=== PATIENT | female | born 1985 | race Caucasian/White ===

== ENCOUNTER → 2021-08-03 09:56 | Outpatient (BNVA) | payer BC, SELFPAY | PROVIDERS: PCP Pediatrics; Visit Provider Psychiatry & Neurology Neurology | DX: G43.709 Chronic migraine without aura, not intractable, without status migrainosus (principal) | CPT/HCPCS: 64615; J0585 ==

== ENCOUNTER → 2021-11-07 09:52 | Outpatient (BNVA) | payer BC, SELFPAY | PROVIDERS: PCP Pediatrics; Visit Provider Psychiatry & Neurology Neurology | DX: G43.709 Chronic migraine without aura, not intractable, without status migrainosus (principal) | CPT/HCPCS: 64615; J0585 ==

== ENCOUNTER → 2022-02-08 09:50 | Outpatient (BNVA) | payer BC, SELFPAY | PROVIDERS: PCP Pediatrics; Visit Provider Psychiatry & Neurology Neurology | DX: G43.709 Chronic migraine without aura, not intractable, without status migrainosus (principal); G43.119 Migraine with aura, intractable, without status migrainosus; R42 Dizziness and giddiness | CPT/HCPCS: 64615; J0585 ==

== ENCOUNTER → 2022-05-15 11:02 | Outpatient (BNVA) | payer BC, SELFPAY | PROVIDERS: PCP Pediatrics; Visit Provider Psychiatry & Neurology Neurology | DX: G43.119 Migraine with aura, intractable, without status migrainosus (principal); G43.709 Chronic migraine without aura, not intractable, without status migrainosus | CPT/HCPCS: 64615; J0585 ==

== ENCOUNTER → 2022-08-21 10:50 | Outpatient (BNVA) | payer BC, SELFPAY | PROVIDERS: PCP Pediatrics; Visit Provider Psychiatry & Neurology Neurology | DX: G43.709 Chronic migraine without aura, not intractable, without status migrainosus (principal) | CPT/HCPCS: 64615; J0585 ==

== ENCOUNTER → 2022-11-25 13:49 | Outpatient (BNVA) | payer BC, SELFPAY | PROVIDERS: PCP Pediatrics; Visit Provider Psychiatry & Neurology Neurology | DX: G43.709 Chronic migraine without aura, not intractable, without status migrainosus (principal) | CPT/HCPCS: 64615; J0585 ==

== ENCOUNTER 2023-03-12 07:30 | Outpatient (AMB) | payer BC, SELFPAY ==
[2023-03-12 07:35] VITALS: BP 112/84; PULSE 65
--- NOTE | 2023-03-12 07:35 | A.OFFVIS_ITS ---
Intake Vital Signs 03/12/23 07:35 Height 5 ft 5 in BP 112/84 Blood Pressure Location Rt brachial Position Sitting Pulse 65 Pulse Source Pulse Oximeter Intake Visit Reasons: 3 mo Botox (pt Owned)-lvm Intake Note: Patient presents for 3 month botox. Patient states no issues or concerns. Allergies No Known Allergies Allergy (Verified 03/12/23 07:37) Medication List - Last Reconciled 03/12/23 by Gabriela Hillman MD adalimumab (Humira Pen) mg subcut albuterol sulfate 90 mcg/actuation inhalation budesonide 180 mcg/actuation (Pulmicort Flexhaler) 2 inhalations inhalation BID clobetasol 0.05% grams topical DIRECTED cyclobenzaprine 5 mg PO BEDTIME levothyroxine (Synthroid) 50 mcg PO DAILY onabotulinumtoxinA (Botox) 200 units IM ONCE spironolactone mg PO sumatriptan succinate mg PO HPI HPI Comments History of Present Illness Details ? 38y/o female comes for treatment of migraines with botox. ??? Most frequent reported adverse reactions following injection of botox for chronic migraine include neck pain (9%), headache(5%), eyelid ptosis(4%), migraine(4%), muscular weakness(4%), musculuskeletal stiffness(4%), bronchitis(3%), injection site pain (3%), musculoskeletal pain(3%), myalgia(3%), facial paresis(2%), HTN(2%) and muscle spasms(2%) were discussed in detail. ??? Botulinum toxin typeA 200units Lot no [id number] expiration Jul 2025 was diluted with 4 cc of normal saline . ??? Muscles injected- ??? Frontalis 4 sites ??? Procerus 1 site ??? Rn Enterostomal- 2 sites ??? Temporalis- 8 sites ??? Occipitalis- 6 sites ??? Cervical paraspinals- 4 sites ??? Trapezius- 6 sites- 10 units each ??? 5 units each in 31 site ??? Total use- 185units ??? Discarded-15units [facility] Medical History Hypothyroidism Chronic migraine without aura Hyperlipidemia Asthma Ulcerative colitis Surgical History Hx of cholecystectomy Family History Father Hypercholesteremia Mother Hypothyroid Brother Ulcerative colitis Diabetes Social History Household Members: Family Alcohol intake: current Alcohol intake frequency: holidays/special occasions only Patient Tobacco Use Status: Never used Tobacco Current occupational status: employed Current occupation: [employer] Physical Exam Vital Signs: Last Vital Signs Pulse 65 03/12/23 07:35 BP 112/84 03/12/23 07:35 Const Orientation/consciousness: patient oriented x3 HEENT Head: Yes normal to inspection and Yes normocephalic Eyes Pupils: Equal, round and reactive pupils present Neuro General: patient oriented x3, gait normal, tone normal and moves all extremities Cranial nerves: Yes CN's II-XII intact bilaterally, Yes Facial sensation intact/muscles of mastication intact, Yes Equal, round and reactive pupils present and Yes Normal facial strength present Office Procedures Botulinum toxin Injection 30104 - Migraine Procedure code (CPT) selection complete Office Meds onabotulinumtoxinA 200 unit solution for injection Performing Provider: Gabriela Hillman MD Performing Location: [facility] [place] [facility] Administered by: Gabriela Hillman MD on 03/12/23 08:09 Dose Route Admin Location Dispensed Lot Number Expiration Date [facility] [employer] 200 unit subcut 200 units [id number] 07/03/25 6838-7998-09 ALLERGAN/BOTOX Comments: see HPI Assessment & Plan Assessment & Plan (1) Chronic migraine without aura: Code(s): G43.709 - Chronic migraine without aura, not intractable, without status migrainosus (2) Migraine with aura, intractable, without status migrainosus: Code(s): G43.119 - Migraine with aura, intractable, without status migrainosus Plan Patient tolerated the procedure well. She will call with any side effects. Orders: Orders AMB Botulinum toxin Injection Today G43.709 - Chronic migraine without aura, not intractable, without status migrainosus Coding Level of Care Code Est Pt Level 1 (11054) Diagnoses Chronic migraine without aura G43.709 Migraine with aura, intractable, without status migrainosus G43.119 CPT Codes Botox Injection - Botox 3: 36718 - Migraine ([id number])
== END 2023-03-12 08:00 | disposition home or self-care (01) ==
PROVIDERS: PCP Pediatrics; Visit Provider Psychiatry & Neurology Neurology
DX: G43.709 Chronic migraine without aura, not intractable, without status migrainosus (principal); G43.119 Migraine with aura, intractable, without status migrainosus
CPT/HCPCS: 64615

== ENCOUNTER → 2023-03-12 07:30 | Outpatient (BNVA) | payer BC, SELFPAY | PROVIDERS: PCP Pediatrics; Visit Provider Psychiatry & Neurology Neurology | DX: G43.709 Chronic migraine without aura, not intractable, without status migrainosus (principal) | CPT/HCPCS: 64615; 99211; J0585 ==

== ENCOUNTER 2023-06-18 08:58 | Outpatient (AMB) | payer BC, SELFPAY ==
[2023-06-18 09:03] VITALS: BP 100/70; PULSE 72; O2SAT 99
--- NOTE | 2023-06-18 09:03 | MHC.OFFVIS ---
Intake Vital Signs 06/18/23 09:03 Height 5 ft 5 in BP 100/70 Blood Pressure Location Rt brachial Pulse 72 Pulse Source Pulse Oximeter Pulse Oximetry (%) 99 Oxygen Delivery Method Room Air Intake Visit Reasons: Botox- Confirmed Intake Note: Patient presents for botox injection Allergies No Known Allergies Allergy (Verified 06/18/23 09:05) Medication List - Last Reconciled 06/18/23 by Gabriela Hillman MD adalimumab (Humira Pen) mg subcut albuterol sulfate 90 mcg/actuation inhalation budesonide 180 mcg/actuation (Pulmicort Flexhaler) 2 inhalations inhalation BID clobetasol 0.05% grams topical DIRECTED cyclobenzaprine 5 mg PO BEDTIME levothyroxine (Synthroid) 50 mcg PO DAILY onabotulinumtoxinA (Botox) 200 units IM ONCE spironolactone mg PO sumatriptan succinate mg PO HPI HPI Comments History of Present Illness Details ? 38y/o female comes for treatment of migraines with botox. How many migraine days prior to botox- 20-25/month How long do the migraines last1-2 days Intensity of xycknrix11/10 ER visits related to migrainenone Effectiveness of botox from last two treatment(s) How many migraine days since receiving treatment:3-4/month Change? in intensity of migraine?5-8 Change in frequency of migraine?decreased Change in use of acute medication for migraine?decreased Change in quality of life?improved ER visits related to migraine?none Have at least three months elapsed since last treatment (Last botox date - frequency of injections)03/12/23 ??? Most frequent reported adverse reactions following injection of botox for chronic migraine include neck pain (9%), headache(5%), eyelid ptosis(4%), migraine(4%), muscular weakness(4%), musculuskeletal stiffness(4%), bronchitis(3%), injection site pain (3%), musculoskeletal pain(3%), myalgia(3%), facial paresis(2%), HTN(2%) and muscle spasms(2%) were discussed in detail. ??? Botulinum toxin typeA 200units Lot no [id number] expiration July 2025 was diluted with 4 cc of normal saline . ??? Muscles injected- ??? Frontalis 4 sites ??? Procerus 1 site ??? Supervisor Inventory Merchandising- 2 sites ??? Temporalis- 8 sites ??? Occipitalis- 6 sites ??? Cervical paraspinals- 4 sites ??? Trapezius- 6 sites- 10 units each ??? 5 units each in 31 site ??? Total use- 185units ??? Discarded-15units [facility] Medical History Hypothyroidism Chronic migraine without aura Hyperlipidemia Asthma Ulcerative colitis Surgical History Hx of cholecystectomy Family History Father Hypercholesteremia Mother Hypothyroid Brother Ulcerative colitis Diabetes Social History Household Members: Family Alcohol intake: current Alcohol intake frequency: holidays/special occasions only Patient Tobacco Use Status: Never used Tobacco Current occupational status: employed Current occupation: [employer] Physical Exam Vital Signs: Last Vital Signs Pulse 72 06/18/23 09:03 BP 100/70 06/18/23 09:03 Pulse Ox 99 06/18/23 09:03 Oxygen Delivery Method Room Air 06/18/23 09:03 Const Orientation/consciousness: patient oriented x3 HEENT Head: Yes normal to inspection and Yes normocephalic Eyes Pupils: Equal, round and reactive pupils present Neuro General: patient oriented x3, gait normal, tone normal and moves all extremities Cranial nerves: Yes CN's II-XII intact bilaterally, Yes Facial sensation intact/muscles of mastication intact, Yes Equal, round and reactive pupils present and Yes Normal facial strength present Office Procedures Botulinum toxin Injection 25293 - Migraine Procedure code (CPT) selection complete Office Meds onabotulinumtoxinA 200 unit solution for injection Performing Provider: Gabriela Hillman MD Performing Location: [facility] [place] [facility] Administered by: Gabriela Hillman MD on 06/18/23 09:31 Dose Route Admin Location Dispensed Lot Number Expiration Date [facility] [employer]ht[employer] Worker 185 unit IM 200 units [id number] 07/31/25 0968-3144-70 ALLERGAN/BOTOX Comments: see HPI Assessment & Plan Assessment & Plan (1) Chronic migraine without aura: Code(s): G43.709 - Chronic migraine without aura, not intractable, without status migrainosus (2) Migraine with aura, intractable, without status migrainosus: Code(s): G43.119 - Migraine with aura, intractable, without status migrainosus Plan Patient tolerated the procedure well. She will call with any side effects. Orders: Orders AMB Botulinum toxin Injection - Patient Supplied Today G43.709 - Chronic migraine without aura, not intractable, without status migrainosus Coding Level of Care Code Est Pt Level 1 (12345) Diagnoses Chronic migraine without aura G43.709 Migraine with aura, intractable, without status migrainosus G43.119 CPT Codes Botox Injection - Botox 3: 86130 - Migraine ([id number])
== END 2023-06-18 09:21 | disposition home or self-care (01) ==
PROVIDERS: PCP Pediatrics; Visit Provider Psychiatry & Neurology Neurology
DX: G43.709 Chronic migraine without aura, not intractable, without status migrainosus (principal); G43.119 Migraine with aura, intractable, without status migrainosus
CPT/HCPCS: 64615

== ENCOUNTER → 2023-06-18 08:58 | Outpatient (BNVA) | payer BC, SELFPAY | PROVIDERS: PCP Pediatrics; Visit Provider Psychiatry & Neurology Neurology | DX: G43.709 Chronic migraine without aura, not intractable, without status migrainosus (principal); G43.119 Migraine with aura, intractable, without status migrainosus | CPT/HCPCS: 64615; 99211; J0585 ==

== ENCOUNTER 2023-09-22 10:24 | Outpatient (AMB) | payer BC, SELFPAY ==
[2023-09-22 10:31] VITALS: BP 100/60; PULSE 79; O2SAT 99; BMI 22.5
--- NOTE | 2023-09-22 10:31 | A.OFFVIS_ITS ---
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: No Accompanied by: Self / Same As Patient Allergies No Known Allergies Allergy (Verified 09/22/23 10:34) Medication List - Last Reconciled 09/22/23 by Gabriela Hillman MD adalimumab (Humira Pen) mg subcut albuterol sulfate 90 mcg/actuation inhalation budesonide 180 mcg/actuation (Pulmicort Flexhaler) 2 inhalations inhalation BID calcium carbonate-vitamin D3 250 mg-3.125 mcg (125 unit) 1 tab PO DAILY clobetasol 0.05% grams topical DIRECTED cyclobenzaprine 5 mg PO BEDTIME PRN fluticasone propionate 50 mcg/actuation 1 spray intranasal DAILY levothyroxine (Synthroid) 50 mcg PO DAILY magnesium oxide 800 mg PO DAILY onabotulinumtoxinA (Botox) 200 units IM ONCE riboflavin (vitamin B2) 800 mg PO DAILY spironolactone mg PO DAILY sumatriptan succinate mg PO PRN HPI Comments Details: ? 38y/o female comes for treatment of migraines with botox. How many migraine days prior to botox- 20-25/month How long do the migraines last1-2 days Intensity of gfvtwyij50/10 ER visits related to migrainenone Effectiveness of botox from last two treatment(s) How many migraine days since receiving treatment:3-4/month Change? in intensity of migraine?5-8 Change in frequency of migraine?decreased Change in use of acute medication for migraine?decreased Change in quality of life?improved ER visits related to migraine?none Have at least three months elapsed since last treatment (Last botox date - frequency of injections)06/25 ??? Most frequent reported adverse reactions following injection of botox for chronic migraine include neck pain (9%), headache(5%), eyelid ptosis(4%), migraine(4%), muscular weakness(4%), musculuskeletal stiffness(4%), bronchitis(3%), injection site pain (3%), musculoskeletal pain(3%), myalgia(3%), facial paresis(2%), HTN(2%) and muscle spasms(2%) were discussed in detail. ??? Botulinum toxin typeA 200units Lot no [id number] expiration October 2025 was diluted with 4 cc of normal saline . ??? Muscles injected- ??? Frontalis 4 sites ??? Procerus 1 site ??? Softlines Supervisor- 2 sites ??? Temporalis- 8 sites ??? Occipitalis- 6 sites ??? Cervical paraspinals- 4 sites ??? Trapezius- 6 sites- 10 units each ??? 5 units each in 31 site ??? Total use- 185units ??? 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 Physical Exam Vital Signs: Last Vital Signs BP 100/60 09/22/23 10:31 BMI result Body Mass Index 22.5 Const Orientation/consciousness: patient oriented x3 HEENT Head: Yes normal to inspection and Yes normocephalic Eyes Pupils: Equal, round and reactive pupils present Neuro General: patient oriented x3, gait normal, tone normal and moves all extremities Cranial nerves: Yes CN's II-XII intact bilaterally, Yes Facial sensation intact/muscles of mastication intact, Yes Equal, round and reactive pupils present and Yes Normal facial strength present Office Procedures Botulinum toxin Injection 11615 - Migraine Procedure code (CPT) selection complete Office Meds onabotulinumtoxinA 200 unit solution for injection Performing Provider: Gabriela Hillman MD Performing Location: [facility] [place] [facility] Administered by: Gabriela Hillman MD on 09/22/23 10:58 Dose Route Admin Location Dispensed Lot Number Expiration Date [employer] 185 unit subcut 200 units [id number] 10/31/25 0483-0440-80 ALLERGAN/BOTOX Comments: see hpi Assessment & Plan Assessment & Plan (1) Chronic migraine without aura: Code(s): G43.709 - Chronic migraine without aura, not intractable, without status migrainosus Category: Medical (2) Migraine with aura, intractable, without status migrainosus: Code(s): G43.119 - Migraine with aura, intractable, without status migrainosus Category: Medical Plan Patient tolerated the procedure well. She will call with any side effects. Orders: Orders AMB Botulinum toxin Injection - Patient Supplied Today G43.709 - Chronic migraine without aura, not intractable, without status migrainosus Medications: New onabotulinumtoxinA 200 units subcut ONCE 1 ea 0RF migraine headache G43.709 - Chronic migraine without aura, not intractable, without status migrainosus
== END 2023-09-22 10:54 | disposition home or self-care (01) ==
LOC: HO.HSMS 10:26
PROVIDERS: PCP Pediatrics; Visit Provider Psychiatry & Neurology Neurology
DX: G43.119 Migraine with aura, intractable, without status migrainosus (principal)
CPT/HCPCS: 64615

== ENCOUNTER → 2023-09-22 10:26 | Outpatient (BNVA) | payer BC, SELFPAY | PROVIDERS: PCP Pediatrics; Visit Provider Psychiatry & Neurology Neurology | DX: G43.709 Chronic migraine without aura, not intractable, without status migrainosus (principal); G43.119 Migraine with aura, intractable, without status migrainosus | CPT/HCPCS: 64615; 99211; J0585 ==

== ENCOUNTER 2023-12-29 08:56 | Outpatient (AMB) | payer BC, SELFPAY ==
--- NOTE | 2023-12-29 09:03 | A.OFFVIS_ITS ---
Vital Signs 12/29/23 09:04 Height 5 ft 5 in Weight 135 lb BMI 22.5 Intake Visit Reasons: Botox - Confirmed Intake Note: Patient presents for botox injection Allergies No Known Allergies Allergy (Verified 12/29/23 09:09) Medication List - Last Reconciled 12/29/23 by Gabriela Hillman MD adalimumab (Humira Pen) mg subcut albuterol sulfate 90 mcg/actuation inhalation budesonide 180 mcg/actuation (Pulmicort Flexhaler) 2 inhalations inhalation BID calcium carbonate-vitamin D3 250 mg-3.125 mcg (125 unit) 1 tab PO DAILY clobetasol 0.05% grams topical DIRECTED cyclobenzaprine 5 mg PO BEDTIME PRN fluticasone propionate 50 mcg/actuation 1 spray intranasal DAILY levothyroxine (Synthroid) 50 mcg PO DAILY magnesium oxide 800 mg PO DAILY onabotulinumtoxinA (Botox) 200 units IM ONCE riboflavin (vitamin B2) 800 mg PO DAILY spironolactone mg PO DAILY sumatriptan succinate mg PO PRN HPI Comments Details: ? 38y/o female comes for treatment of migraines with botox. How many migraine days prior to botox- 20-25/month How long do the migraines last1-2 days Intensity of xpyyyoeh08/10 ER visits related to migrainenone Effectiveness of botox from last two treatment(s) How many migraine days since receiving treatment:3-4/month Change? in intensity of migraine?5-8 Change in frequency of migraine?decreased Change in use of acute medication for migraine?decreased Change in quality of life?improved ER visits related to migraine?none Have at least three months elapsed since last treatment (Last botox date - frequency of injections)09/23 ??? Most frequent reported adverse reactions following injection of botox for chronic migraine include neck pain (9%), headache(5%), eyelid ptosis(4%), migraine(4%), muscular weakness(4%), musculuskeletal stiffness(4%), bronchitis(3%), injection site pain (3%), musculoskeletal pain(3%), myalgia(3%), facial paresis(2%), HTN(2%) and muscle spasms(2%) were discussed in detail. ??? Botulinum toxin typeA 200units Lot no [id number] expiration May 2026 was diluted with 4 cc of normal saline . ??? Muscles injected- ??? Frontalis 4 sites ??? Procerus 1 site ??? Makeup Editor- 2 sites ??? Temporalis- 8 sites ??? Occipitalis- 6 sites ??? Cervical paraspinals- 4 sites ??? Trapezius- 6 sites- 10 units each ??? 5 units each in 31 site ??? Total use- 185units ??? Discarded-15units [facility] Medical History (Updated 12/29/23 @ 10:36 by Gabriela Hillman MD) Chronic migraine without aura, intractable, without status migrainosus Hypothyroidism Chronic migraine without aura Hyperlipidemia Asthma Ulcerative colitis Surgical History Hx of cholecystectomy Family History Father Hypercholesteremia Mother Hypothyroid Brother Ulcerative colitis Diabetes Social History Household Members: Family Alcohol intake: current Alcohol intake frequency: holidays/special occasions only Patient Tobacco Use Status: Never used Tobacco Current occupational status: employed 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 Exam Vital Signs: BMI result Body Mass Index 22.5 Const Orientation/consciousness: patient oriented x3 HEENT Head: Yes normal to inspection and Yes normocephalic Eyes Pupils: Equal, round and reactive pupils present Neuro General: patient oriented x3, gait normal, tone normal and moves all extremities Cranial nerves: Yes CN's II-XII intact bilaterally, Yes Facial sensation intact/muscles of mastication intact, Yes Equal, round and reactive pupils present and Yes Normal facial strength present Office Procedures Botulinum toxin Injection 61468 - Migraine Procedure code (CPT) selection complete Office Meds onabotulinumtoxinA 200 unit solution for injection Performing Provider: Gabriela Hillman MD Per[place] [facility] [place] [facility] Administered by: Gabriela Hillman MD on 12/29/23 10:39 Dose Route Admin Location Dispensed Lot Number Expiration Date [facility] [employer] 185 unit subcut 200 units [id number] 12/29/23 9922-9610-75 ALLERGAN/BOTOX Comments: see hpi Assessment & Plan Assessment & Plan (1) Chronic migraine without aura: Code(s): G43.709 - Chronic migraine without aura, not intractable, without status migrainosus Category: Medical (2) Migraine with aura, intractable, without status migrainosus: Code(s): G43.119 - Migraine with aura, intractable, without status migrainosus Category: Medical (3) Chronic migraine without aura, intractable, without status migrainosus: Code(s): G43.719 - Chronic migraine without aura, intractable, without status migrainosus Category: Medical Plan Patient tolerated the procedure well. She will call with any side effects. Orders: Orders AMB Botulinum toxin Injection - Patient Supplied Today G43.719 - Chronic migraine without aura, intractable, without status migrainosus Medications: New onabotulinumtoxinA 200 units subcut ONCE 1 ea 0RF migraine G43.719 - Chronic migraine without aura, intractable, without status migrainosus Coding Level of Care Code Est Pt Level 1 (20188) Diagnoses Chronic migraine without aura G43.709 Migraine with aura, intractable, without status migrainosus G43.119 Chronic migraine without aura, intractable, without status migrainosus G43.719 CPT Codes Botox Injection - Botox 3: 90052 - Migraine ([id number])
[2023-12-29 09:04] VITALS: BMI 22.5
== END 2023-12-29 09:39 | disposition home or self-care (01) ==
PROVIDERS: PCP Pediatrics; Visit Provider Psychiatry & Neurology Neurology
DX: G43.719 Chronic migraine without aura, intractable, without status migrainosus (principal)
CPT/HCPCS: 64615

== ENCOUNTER → 2023-12-29 08:56 | Outpatient (BNVA) | payer BC, SELFPAY | PROVIDERS: PCP Pediatrics; Visit Provider Psychiatry & Neurology Neurology | DX: G43.E19 Chronic migraine with aura, intractable, without status migrainosus (principal) | CPT/HCPCS: 64615; 99211; J0585 ==

== ENCOUNTER 2024-04-07 08:23 | Outpatient (AMB) | payer BC, SELFPAY ==
--- NOTE | 2024-04-07 08:44 | MHC.OFFVIS ---
Vital Signs 04/07/24 08:44 Height 5 ft 5 in Intake Visit Reasons: Botox Intake Note: Patient presents for botox injection Allergies No Known Allergies Allergy (Verified 04/07/24 08:46) PFSH Medical History Chronic migraine without aura, intractable, without status migrainosus Hypothyroidism Chronic migraine without aura Hyperlipidemia Asthma Ulcerative colitis Surgical History Hx of cholecystectomy Family History Father Hypercholesteremia Mother Hypothyroid Brother Ulcerative colitis Diabetes Social History Household Members: Family Alcohol intake: current Alcohol intake frequency: holidays/special occasions only Patient Tobacco Use Status: Never used Tobacco Current occupational status: employed 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
--- NOTE | 2024-04-07 08:49 | A.OFFVIS_ITS ---
Vital Signs 04/07/24 08:44 Height 5 ft 5 in Intake Visit Reasons: Botox Allergies No Known Allergies Allergy (Verified 04/07/24 08:46) Medication List - Last Reconciled 04/07/24 by Gabriela Hillman MD adalimumab (Humira Pen) mg subcut albuterol sulfate 90 mcg/actuation inhalation budesonide 180 mcg/actuation (Pulmicort Flexhaler) 2 inhalations inhalation BID calcium carbonate-vitamin D3 250 mg-3.125 mcg (125 unit) 1 tab PO DAILY clobetasol 0.05% grams topical DIRECTED cyclobenzaprine 5 mg PO BEDTIME PRN fluticasone propionate 50 mcg/actuation 1 spray intranasal DAILY levothyroxine (Synthroid) 50 mcg PO DAILY magnesium oxide 800 mg PO DAILY onabotulinumtoxinA (Botox) 200 units IM ONCE riboflavin (vitamin B2) 800 mg PO DAILY spironolactone mg PO DAILY sumatriptan succinate mg PO PRN HPI Comments Details: ? 39y/o female comes for treatment of migraines with botox. How many migraine days prior to botox- 20-25/month How long do the migraines last1-2 days Intensity of hrgvrifd47/10 ER visits related to migrainenone Effectiveness of botox from last two treatment(s) How many migraine days since receiving treatment:3-4/month Change? in intensity of migraine?5-8 Change in frequency of migraine?decreased Change in use of acute medication for migraine?decreased Change in quality of life?improved ER visits related to migraine?none Have at least three months elapsed since last treatment (Last botox date - frequency of injections)01/23 ??? Most frequent reported adverse reactions following injection of botox for chronic migraine include neck pain (9%), headache(5%), eyelid ptosis(4%), migraine(4%), muscular weakness(4%), musculuskeletal stiffness(4%), bronchitis(3%), injection site pain (3%), musculoskeletal pain(3%), myalgia(3%), facial paresis(2%), HTN(2%) and muscle spasms(2%) were discussed in detail. ??? Botulinum toxin typeA 200units Lot no [id number] expiration Jan 2026 was diluted with 4 cc of normal saline . ??? Muscles injected- ??? Frontalis 4 sites ??? Procerus 1 site ??? Parts Salesperson- 2 sites ??? Temporalis- 8 sites ??? Occipitalis- 6 sites ??? Cervical paraspinals- 4 sites ??? Trapezius- 6 sites- 10 units each ??? 5 units each in 31 site ??? Total use- 185units ??? 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 Physical Exam Const Orientation/consciousness: patient oriented x3 HEENT Head: Yes normal to inspection and Yes normocephalic Eyes Pupils: Equal, round and reactive pupils present Neuro General: patient oriented x3, gait normal, tone normal and moves all extremities Cranial nerves: Yes CN's II-XII intact bilaterally, Yes Facial sensation intact/muscles of mastication intact, Yes Equal, round and reactive pupils present and Yes Normal facial strength present Office Procedures Botulinum toxin Injection 65157 - Migraine Procedure code (CPT) selection complete Office Meds onabotulinumtoxinA 200 unit solution for injection Performing Provider: Gabriela Hillman MD [place] [facility] [place] [facility] Administered by: Gabriela Hillman MD on 04/07/24 09:13 2 Dose Route Admin Location Dispensed Lot Number Expiration Date [facility] [place] Back Gray Cloth Washer 185 unit subcut 200 units [id number] 01/31/26 [id number] ALLERGAN/BOTOX Comments: see HPI Assessment & Plan Assessment & Plan (1) Chronic migraine without aura: Code(s): G43.709 - Chronic migraine without aura, not intractable, without status migrainosus Category: Medical Qualifiers: Status migrainosus presence: without status migrainosus Intractability: intractable Qualified Code(s): G43.719 - Chronic migraine without aura, intractable, without status migrainosus (2) Migraine with aura, intractable, without status migrainosus: Code(s): G43.119 - Migraine with aura, intractable, without status migrainosus Category: Medical (3) Chronic migraine without aura, intractable, without status migrainosus: Code(s): G43.719 - Chronic migraine without aura, intractable, without status migrainosus Category: Medical Plan Patient tolerated the procedure well. She will call with any side effects. Orders: Orders AMB Botulinum toxin Injection - Patient Supplied N/C Today G43.719 - Chronic migraine without aura, intractable, without status migrainosus Medications: New onabotulinumtoxinA 200 units subcut ONCE 1 ea 0RF migraine G43.719 - Chronic migraine without aura, intractable, without status migrainosus Coding Level of Care Code Est Pt Level 1 (49911) Diagnoses Intractable chronic migraine without aura and without status migrainosus G43.719 Status migrainosus presence: without status migrainosus Intractability: intractable Migraine with aura, intractable, without status migrainosus G43.119 Chronic migraine without aura, intractable, without status migrainosus G43.719 CPT Codes Botox Injection - Botox 3: 18272 - Migraine ([id number])
== END 2024-04-07 09:00 | disposition home or self-care (01) ==
LOC: HO.HSMS 08:24
PROVIDERS: PCP Pediatrics; Visit Provider Psychiatry & Neurology Neurology
DX: G43.E19 Chronic migraine with aura, intractable, without status migrainosus (principal)
CPT/HCPCS: 64615

== ENCOUNTER → 2024-04-07 08:23 | Outpatient (BNVA) | payer BC, SELFPAY | PROVIDERS: PCP Pediatrics; Visit Provider Psychiatry & Neurology Neurology | DX: G43.E19 Chronic migraine with aura, intractable, without status migrainosus (principal) | CPT/HCPCS: 64615; 99211; J0585 ==

== ENCOUNTER 2024-07-28 08:54 | Outpatient (AMB) | payer BC, SELFPAY ==
[2024-07-28 09:03] VITALS: BP 110/68; PULSE 91; O2SAT 99; BMI 23.6
--- NOTE | 2024-07-28 09:03 | MHC.OFFVIS ---
Vital Signs 07/28/24 09:03 Height 5 ft 5 in Weight 142 lb BMI 23.6 BP 110/68 Blood Pressure Location Lt brachial Position Sitting Pulse 91 Pulse Source Pulse Oximeter Pulse Oximetry (%) 99 Oxygen Delivery Method Room Air Intake Visit Reasons: Botox Intake Note: Pt presents to the office today for botox injections. Allergies No Known Allergies Allergy (Verified 07/28/24 09:04) Medication List - Last Reconciled 07/28/24 by Gabriela Hillman MD albuterol sulfate 90 mcg/actuation inhalation atorvastatin 40 mg PO BEDTIME budesonide 180 mcg/actuation (Pulmicort Flexhaler) 2 inhalations inhalation BID calcium carbonate-vitamin D3 250 mg-3.125 mcg (125 unit) 1 tab PO DAILY clobetasol 0.05% grams topical DIRECTED cyclobenzaprine 5 mg PO BEDTIME PRN fluticasone propionate 50 mcg/actuation 1 spray intranasal DAILY levothyroxine (Synthroid) 50 mcg PO DAILY magnesium oxide 800 mg PO DAILY onabotulinumtoxinA (Botox) 200 units IM ONCE riboflavin (vitamin B2) 800 mg PO DAILY rimegepant (Nurtec ODT) 75 mg PO Q OTHER DAY PRN rizatriptan take 1 tab at onset of headache; if no relief may repeat 1 tab after at least 2 hrs; max = 3 tabs/24 hr PO spironolactone mg PO DAILY sumatriptan succinate mg PO PRN vedolizumab (Entyvio) 300 mg IV Q6W HPI Comments Details: ? 39y/o female comes for treatment of migraines with botox. After he rlast visit she had Lyme carditis , Ulcerative colitis . she stopped Humira How many migraine days prior to botox- 20-25/month How long do the migraines last1-2 days Intensity of qekjupkh78/10 ER visits related to migrainenone Effectiveness of botox from last two treatment(s) How many migraine days since receiving treatment:3-4/month Change? in intensity of migraine?5-8 Change in frequency of migraine?decreased Change in use of acute medication for migraine?decreased Change in quality of life?improved ER visits related to migraine?none Have at least three months elapsed since last treatment (Last botox date - frequency of injections)01/23 ??? Most frequent reported adverse reactions following injection of botox for chronic migraine include neck pain (9%), headache(5%), eyelid ptosis(4%), migraine(4%), muscular weakness(4%), musculuskeletal stiffness(4%), bronchitis(3%), injection site pain (3%), musculoskeletal pain(3%), myalgia(3%), facial paresis(2%), HTN(2%) and muscle spasms(2%) were discussed in detail. ??? Botulinum toxin typeA 200units Lot no [id number] expiration Jan 2026 was diluted with 4 cc of normal saline . ??? Muscles injected- ??? Frontalis 4 sites ??? Procerus 1 site ??? Glove Examiner- 2 sites ??? Temporalis- 8 sites ??? Occipitalis- 6 sites ??? Cervical paraspinals- 4 sites ??? Trapezius- 6 sites- 10 units each ??? 5 units each in 31 site ??? Total use- 185units ??? 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 Physical Exam Vital Signs: Last Vital Signs Pulse 91 07/28/24 09:03 BP 110/68 07/28/24 09:03 Pulse Ox 99 07/28/24 09:03 Oxygen Delivery Method Room Air 07/28/24 09:03 BMI result Body Mass Index 23.6 Const Orientation/consciousness: patient oriented x3 HEENT Head: Yes normal to inspection and Yes normocephalic Eyes Pupils: Equal, round and reactive pupils present Neuro General: patient oriented x3, gait normal, tone normal and moves all extremities Cranial nerves: Yes CN's II-XII intact bilaterally, Yes Facial sensation intact/muscles of mastication intact, Yes Equal, round and reactive pupils present and Yes Normal facial strength present Office Procedures Botulinum toxin Injection 12965 - Migraine Procedure code (CPT) selection complete Office Meds onabotulinumtoxinA 200 unit solution for injection Performing Provider: Gabriela Hillman MD Performing Location: [facility] [place] [facility] Administered by: Gabriela Hillman MD on 07/28/24 10:49 Dose Route Admin Location Dispensed Lot Number Expiration Date [facility] Life Director 185 unit subcut 200 units [id number] ALLERGAN/BOTOX Comments: see hpi Assessment & Plan Assessment & Plan (1) Chronic migraine without aura: Code(s): G43.709 - Chronic migraine without aura, not intractable, without status migrainosus Category: Medical Qualifiers: Status migrainosus presence: without status migrainosus Intractability: intractable Qualified Code(s): G43.719 - Chronic migraine without aura, intractable, without status migrainosus (2) Migraine with aura, intractable, without status migrainosus: Code(s): G43.119 - Migraine with aura, intractable, without status migrainosus Category: Medical (3) Chronic migraine without aura, intractable, without status migrainosus: Code(s): G43.719 - Chronic migraine without aura, intractable, without status migrainosus Category: Medical Plan Patient tolerated the procedure well. She will call with any side effects. Orders: Orders AMB Botulinum toxin Injection - Patient Supplied N/C Today G43.719 - Chronic migraine without aura, intractable, without status migrainosus Medications: New rimegepant (Nurtec ODT) 75 mg PO Q OTHER DAY PRN 14 tabs 6RF migraine headache onabotulinumtoxinA 200 units subcut ONCE 1 ea 0RF migraine headache G43.719 - Chronic migraine without aura, intractable, without status migrainosus rizatriptan take 1 tab at onset of headache; if no relief may repeat 1 tab after at least 2 hrs; max = 3 tabs/24 hr PO 10 tabs 6RF Coding Level of Care Code Est Pt Level 1 (09233) Diagnoses Intractable chronic migraine without aura and without status migrainosus G43.719 Status migrainosus presence: without status migrainosus Intractability: intractable Migraine with aura, intractable, without status migrainosus G43.119 Chronic migraine without aura, intractable, without status migrainosus G43.719 CPT Codes Botox Injection - Botox 3: 95013 - Migraine ([id number])
== END 2024-07-28 09:28 | disposition home or self-care (01) ==
PROVIDERS: PCP Pediatrics; Visit Provider Psychiatry & Neurology Neurology
DX: G43.719 Chronic migraine without aura, intractable, without status migrainosus (principal)
CPT/HCPCS: 64615

== ENCOUNTER → 2024-07-28 08:54 | Outpatient (BNVA) | payer BC, SELFPAY | PROVIDERS: PCP Pediatrics; Visit Provider Psychiatry & Neurology Neurology | DX: G43.E19 Chronic migraine with aura, intractable, without status migrainosus (principal) | CPT/HCPCS: 64615; 99211; J0585 ==

== ENCOUNTER 2024-11-03 14:14 | Outpatient (AMB) | payer BC, SELFPAY ==
--- NOTE | 2024-11-03 14:19 | A.OFFVIS_ITS ---
Vital Signs 11/03/24 14:20 Height 5 ft 5 in Weight 135 lb 8 oz BMI 22.5 BP 105/58 L Blood Pressure Location Rt brachial Position Sitting Pulse 77 Pulse Source Pulse Oximeter Pulse Oximetry (%) 97 Oxygen Delivery Method Room Air Intake Visit Reasons: Botox-LVM to r/s Intake Note: Botox follow-up appt. Lead Fire Protection Engineer Required: No Accompanied by: Self / Same As Patient Allergies No Known Allergies Allergy (Verified 11/03/24 14:22) Medication List - Last Reconciled 11/03/24 by Gabriela Hillman MD albuterol sulfate 90 mcg/actuation inhalation atorvastatin 40 mg PO BEDTIME budesonide 180 mcg/actuation (Pulmicort Flexhaler) 2 inhalations inhalation BID calcium carbonate-vitamin D3 250 mg-3.125 mcg (125 unit) 1 tab PO DAILY clobetasol 0.05% grams topical DIRECTED cyclobenzaprine 5 mg PO BEDTIME PRN fluticasone propionate 50 mcg/actuation 1 spray intranasal DAILY levothyroxine (Synthroid) 50 mcg PO DAILY magnesium oxide 800 mg PO DAILY onabotulinumtoxinA (Botox) 200 units IM ONCE riboflavin (vitamin B2) 800 mg PO DAILY rizatriptan take 1 tab at onset of headache; if no relief may repeat 1 tab after at least 2 hrs; max = 3 tabs/24 hr PO spironolactone mg PO DAILY sumatriptan succinate mg PO PRN ubrogepant (Ubrelvy) 1 tab at onset of headaches and repeat in 2hrs as needed- maximum 4 tabs a day PRN; vedolizumab (Entyvio) 300 mg IV Q6W Do you need a note to return to daycare/school/sports/work: No HPI Comments Details: ? 39y/o female comes for treatment of migraines with botox. After he rlast visit she had Lyme carditis , Ulcerative colitis . she stopped Humira How many migraine days prior to botox- 20-25/month How long do the migraines last1-2 days Intensity of /10 ER visits related to migrainenone Effectiveness of botox from last two treatment(s) How many migraine days since receiving treatment:3-4/month Change? in intensity of migraine?5-8 Change in frequency of migraine?decreased Change in use of acute medication for migraine?decreased Change in quality of life?improved ER visits related to migraine?none Have at least three months elapsed since last treatment (Last botox date - frequency of injections)yes ??? Most frequent reported adverse reactions following injection of botox for chronic migraine include neck pain (9%), headache(5%), eyelid ptosis(4%), migraine(4%), muscular weakness(4%), musculuskeletal stiffness(4%), bronchitis(3%), injection site pain (3%), musculoskeletal pain(3%), myalgia(3%), facial paresis(2%), HTN(2%) and muscle spasms(2%) were discussed in detail. ??? Botulinum toxin typeA 200units Lot no [id number] expiration Mar 2027 was diluted with 4 cc of normal saline . ??? Muscles injected- ??? Frontalis 4 sites ??? Procerus 1 site ??? Criminal Justice Department Chair- 2 sites ??? Temporalis- 8 sites ??? Occipitalis- 6 sites ??? Cervical paraspinals- 4 sites ??? Trapezius- 6 sites- 10 units each ??? 5 units each in 31 site ??? Total use- 185units ??? 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 Physical Exam Vital Signs: Last Vital Signs Pulse 77 11/03/24 14:20 BP 105/58 L 11/03/24 14:20 Pulse Ox 97 11/03/24 14:20 Oxygen Delivery Method Room Air 11/03/24 14:20 BMI result Body Mass Index 22.5 Const Orientation/consciousness: patient oriented x3 HEENT Head: Yes normal to inspection and Yes normocephalic Eyes Pupils: Equal, round and reactive pupils present Neuro General: patient oriented x3, gait normal, tone normal and moves all extremities Cranial nerves: Yes CN's II-XII intact bilaterally, Yes Facial sensation int act/muscles of mastication intact, Yes Equal, round and reactive pupils present and Yes Normal facial strength present Office Procedures Botulinum toxin Injection 33056 - Migraine Procedure code (CPT) selection complete Office Meds onabotulinumtoxinA 200 unit solution for injection Performing Provider: Gabriela Hillman MD Per[place] [facility] [place] [facility] Administered by: Gabriela Hillman MD on 11/03/24 14:57 Dose Route Admin Location Dispensed Lot Number Expiration Date [facility] Renal Dietitian 185 unit subcut 200 units [id number] ALLERGAN/BOTOX Comments: see HPI Assessment & Plan Assessment & Plan (1) Chronic migraine without aura: Code(s): G43.709 - Chronic migraine without aura, not intractable, without status migrainosus Category: Medical Qualifiers: Status migrainosus presence: without status migrainosus Intractability: intractable Qualified Code(s): G43.719 - Chronic migraine without aura, intractable, without status migrainosus (2) Migraine with aura, intractable, without status migrainosus: Code(s): G43.119 - Migraine with aura, intractable, without status migrainosus Category: Medical (3) Chronic migraine without aura, intractable, without status migrainosus: Code(s): G43.719 - Chronic migraine without aura, intractable, without status migrainosus Category: Medical Plan Patient tolerated the procedure well. She will call with any side effects. Orders: Orders AMB Botulinum toxin Injection - Patient Supplied N/C Today G43.719 - Chronic migraine without aura, intractable, without status migrainosus Medications: New onabotulinumtoxinA 200 units subcut ONCE 1 ea 0RF migraine headache G43.719 - Chronic migraine without aura, intractable, without status migrainosus Coding Level of Care Code Est Pt Level 1 (87140) Diagnoses Intractable chronic migraine without aura and without status migrainosus G43.719 Status migrainosus presence: without status migrainosus Intractability: intractable Migraine with aura, intractable, without status migrainosus G43.119 Chronic migraine without aura, intractable, without status migrainosus G43.719 CPT Codes Botox Injection - Botox 3: 04315 - Migraine ([id number])
[2024-11-03 14:20] VITALS: BP 105/58; PULSE 77; O2SAT 97; BMI 22.5
== END 2024-11-03 14:55 | disposition home or self-care (01) ==
LOC: HO.HSMS 14:15
PROVIDERS: PCP Pediatrics; Visit Provider Psychiatry & Neurology Neurology
DX: G43.719 Chronic migraine without aura, intractable, without status migrainosus (principal)
CPT/HCPCS: 64615

== ENCOUNTER → 2024-11-03 14:14 | Outpatient (BNVA) | payer BC, SELFPAY | PROVIDERS: PCP Pediatrics; Visit Provider Psychiatry & Neurology Neurology | DX: G43.719 Chronic migraine without aura, intractable, without status migrainosus (principal); G43.119 Migraine with aura, intractable, without status migrainosus | CPT/HCPCS: 64615; 99211; J0585 ==

== ENCOUNTER 2025-02-07 09:05 | Outpatient (AMB) | payer BC, SELFPAY ==
--- NOTE | 2025-02-07 09:09 | A.OFFVIS_ITS ---
Vital Signs 02/07/25 09:10 Height 5 ft 5 in Weight 142 lb BMI 23.6 BP 104/68 Blood Pressure Location Rt brachial Position Sitting Pulse 72 Pulse Source Pulse Oximeter Pulse Oximetry (%) 98 Oxygen Delivery Method Room Air Intake Visit Reasons: Botox Intake Note: Botox Metal Polisher And Buffer Apprentice Required: No Accompanied by: Self / Same As Patient Allergies No Known Allergies Allergy (Verified 02/07/25 09:10) Medication List - Last Reconciled 02/07/25 by Gabriela Hillman MD albuterol sulfate 90 mcg/actuation inhalation atorvastatin 40 mg PO BEDTIME budesonide 180 mcg/actuation (Pulmicort Flexhaler) 2 inhalations inhalation BID calcium carbonate-vitamin D3 250 mg-3.125 mcg (125 unit) 1 tab PO DAILY clindamycin phosphate 1% topical QAM clobetasol 0.05% grams topical DIRECTED cyclobenzaprine 5 mg PO BEDTIME PRN fluticasone propionate 50 mcg/actuation 1 spray intranasal DAILY levothyroxine (Synthroid) 50 mcg PO DAILY magnesium oxide 800 mg PO DAILY onabotulinumtoxinA (Botox) 200 units IM ONCE riboflavin (vitamin B2) 800 mg PO DAILY spironolactone mg PO DAILY tretinoin 0.025% appl topical BEDTIME ubrogepant (Ubrelvy) 1 tab at onset of headaches and repeat in 2hrs as needed- maximum 4 tabs a day PRN; vedolizumab (Entyvio) 300 mg IV Q6W HPI Comments Details: ? 39y/o female comes for treatment of migraines with botox. After he rlast visit she had Lyme carditis , Ulcerative colitis . she stopped Humira How many migraine days prior to botox- 20-25/month How long do the migraines last1-2 days Intensity of [id number]/10 ER visits related to migrainenone Effectiveness of botox from last two treatment(s) How many migraine days since receiving treatment:3-4/month Change? in intensity of migraine?5-8 Change in frequency of migraine?decreased Change in use of acute medication for migraine?decreased Change in quality of life?improved ER visits related to migraine?none Have at least three months elapsed since last treatment (Last botox date - frequency of injections)yes ??? Most frequent reported adverse reactions following injection of botox for chronic migraine include neck pain (9%), headache(5%), eyelid ptosis(4%), migraine(4%), muscular weakness(4%), musculuskeletal stiffness(4%), bronchitis(3%), injection site pain (3%), musculoskeletal pain(3%), myalgia(3%), facial paresis(2%), HTN(2%) and muscle spasms(2%) were discussed in detail. ??? Botulinum toxin typeA 200units Lot no [id number] expiration August 2027 was diluted with 4 cc of normal saline . ??? Muscles injected- ??? Frontalis 4 sites ??? Procerus 1 site ??? Rail Flaw Detector Operator- 2 sites ??? Temporalis- 8 sites ??? Occipitalis- 6 sites ??? Cervical paraspinals- 4 sites ??? Trapezius- 6 sites- 10 units each ??? 5 units each in 31 site ??? Total use- 185units ??? 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 Physical Exam Vital Signs: Last Vital Signs Pulse 72 02/07/25 09:10 BP 104/68 02/07/25 09:10 Pulse Ox 98 02/07/25 09:10 Oxygen Delivery Method Room Air 02/07/25 09:10 BMI result Body Mass Index 23.6 Const Orientation/consciousness: patient oriented x3 HEENT Head: Yes normal to inspection and Yes normocephalic Eyes Pupils: Equal, round and reactive pupils present Neuro General: patient oriented x3, gait normal, tone normal and moves all extremities Cranial nerves: Yes CN's II-XII intact bilaterally, Yes Facial sensation intact/muscles of mastication intact, Yes Equal, round and reactive pupils present and Yes Normal facial strength present Office Procedures Botulinum toxin Injection 19547 - Migraine Procedure code (CPT) selection complete Office Meds onabotulinumtoxinA 200 unit solution for injection Performing Provider: Gabriela Hillman MD Performing Location: [facility] Administered by: Gabriela Hillman MD on 02/07/25 09:37 Dose Route Admin Location Dispensed Lot Number Expiration Date [facility] Relief Captain 185 unit subcut 200 units [id number] [employer] /BOTOX Total Dispensed Waste 200 units 7.5 % Comments: see HPI Assessment & Plan Assessment & Plan (1) Chronic migraine without aura: Code(s): G43.709 - Chronic migraine without aura, not intractable, without status migrainosus Category: Medical Qualifiers: Status migrainosus presence: without status migrainosus Intractability: intractable Qualified Code(s): G43.719 - Chronic migraine without aura, intractable, without status migrainosus (2) Migraine with aura, intractable, without status migrainosus: Code(s): G43.119 - Migraine with aura, intractable, without status migrainosus Category: Medical (3) Chronic migraine without aura, intractable, without status migrainosus: Code(s): G43.719 - Chronic migraine without aura, intractable, without status migrainosus Category: Medical Plan Patient tolerated the procedure well. She will call with any side effects. Orders: Orders AMB Botulinum toxin Injection - Patient Supplied N/C Today G43.719 - Chronic migraine without aura, intractable, without status migrainosus Coding Level of Care Code Est Pt Level 1 (05832) Diagnoses Intractable chronic migraine without aura and without status migrainosus G43.719 Status migrainosus presence: without status migrainosus Intractability: intractable Migraine with aura, intractable, without status migrainosus G43.119 Chronic migraine without aura, intractable, without status migrainosus G43.719 CPT Codes Botox Injection - Botox 3: 55448 - Migraine ([id number])
[2025-02-07 09:10] VITALS: BP 104/68; PULSE 72; O2SAT 98; BMI 23.6
== END 2025-02-07 09:31 | disposition home or self-care (01) ==
LOC: HO.HSMS 09:06
PROVIDERS: PCP Pediatrics; Visit Provider Psychiatry & Neurology Neurology
DX: G43.719 Chronic migraine without aura, intractable, without status migrainosus (principal)
CPT/HCPCS: 64615

== ENCOUNTER → 2025-02-07 09:05 | Outpatient (BNVA) | payer BC, SELFPAY | PROVIDERS: PCP Pediatrics; Visit Provider Psychiatry & Neurology Neurology | DX: G43.719 Chronic migraine without aura, intractable, without status migrainosus (principal) | CPT/HCPCS: 64615; 99211; J0585 ==

== ENCOUNTER 2025-05-11 12:25 | Outpatient (AMB) | payer BC, SELFPAY ==
--- NOTE | 2025-05-11 12:26 | A.OFFVIS_ITS ---
Vital Signs 05/11/25 12:27 Height 5 ft 5 in Weight 140 lb 2 oz BMI 23.3 BP 108/64 Blood Pressure Location Rt brachial Position Sitting Pulse 80 Pulse Source Pulse Oximeter Pulse Oximetry (%) 98 Oxygen Delivery Method Room Air Intake Visit Reasons: Botox Intake Note: Botox Dispensary Clerk Required: No Accompanied by: Self / Same As Patient Allergies No Known Allergies Allergy (Verified 05/11/25 12:26) Medication List - Last Reconciled 05/11/25 by Gabriela Hillman MD albuterol sulfate 90 mcg/actuation inhalation budesonide 180 mcg/actuation (Pulmicort Flexhaler) 2 inhalations inhalation BID calcium carbonate-vitamin D3 250 mg-3.125 mcg (125 unit) 1 tab PO DAILY clindamycin phosphate 1% topical QAM clobetasol 0.05% grams topical DIRECTED cyclobenzaprine 5 mg PO BEDTIME PRN famotidine 40 mg PO DAILY fluticasone propionate 50 mcg/actuation 1 spray intranasal DAILY levothyroxine (Synthroid) 50 mcg PO DAILY magnesium oxide 800 mg PO DAILY onabotulinumtoxinA (Botox) 200 units IM ONCE riboflavin (vitamin B2) 800 mg PO DAILY spironolactone mg PO DAILY tretinoin 0.025% appl topical BEDTIME ubrogepant (Ubrelvy) 1 tab at onset of headaches and repeat in 2hrs as needed- maximum 4 tabs a day PRN; vedolizumab (Entyvio Pen) mg subcut HPI Comments Details: ? 39y/o female comes for treatment of migraines with botox. After he rlast visit she had Lyme carditis , Ulcerative colitis . she stopped Humira How many migraine days prior to botox- 20-25/month How long do the migraines last1-2 days Intensity of [id number]/10 ER visits related to migrainenone Effectiveness of botox from last two treatment(s) How many migraine days since receiving treatment:3-4/month Change? in intensity of migraine?5-8 Change in frequency of migraine?decreased Change in use of acute medication for migraine?decreased Change in quality of life?improved ER visits related to migraine?none Have at least three months elapsed since last treatment (Last botox date - frequency of injections)yes ??? Most frequent reported adverse reactions following injection of botox for chronic migraine include neck pain (9%), headache(5%), eyelid ptosis(4%), migraine(4%), muscular weakness(4%), musculuskeletal stiffness(4%), bronchitis(3%), injection site pain (3%), musculoskeletal pain(3%), myalgia(3%), facial paresis(2%), HTN(2%) and muscle spasms(2%) were discussed in detail. ??? Botulinum toxin typeA 200units Lot no [id number] expiration August 2027 was diluted with 4 cc of normal saline . ??? Muscles injected- ??? Frontalis 4 sites ??? Procerus 1 site ??? Explosive Ordnance Disposal Technician- 2 sites ??? Temporalis- 8 sites ??? Occipitalis- 6 sites ??? Cervical paraspinals- 4 sites ??? Trapezius- 6 sites- 10 units each ??? 5 units each in 31 site ??? Total use- 185units ??? 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 Physical Exam Vital Signs: Last Vital Signs Pulse 80 05/11/25 12:27 BP 108/64 05/11/25 12:27 Pulse Ox 98 05/11/25 12:27 Oxygen Delivery Method Room Air 05/11/25 12:27 BMI result Body Mass Index 23.3 Const Orientation/consciousness: patient oriented x3 HEENT Head: Yes normal to inspection and Yes normocephalic Eyes Pupils: Equal, round and reactive pupils present Neuro General: patient oriented x3, gait normal, tone normal and moves all extremities Cranial nerves: Yes CN's II-XII intact bilaterally, Yes Facial sensation intact/muscles of mastication intact, Yes Equal, round and reactive pupils present and Yes Normal facial strength present Office Procedures Botulinum toxin Injection 43637 - Migraine Procedure code (CPT) selection complete Office Meds onabotulinumtoxinA 200 unit solution for injection Performing Provider: Gabriela Hillman MD Performing Location: [facility] [place] [facility] Administered by: Gabriela Hillman MD on 05/11/25 13:30 Dose Route Admin Location Dispensed Lot Number Expiration Date [facility] Data Analytics Architect 185 unit subcut 200 units [id number] [employer] /BOTOX Total Dispensed Waste 200 units 7.5 % Comments: see hpi Assessment & Plan Assessment & Plan (1) Chronic migraine without aura: Code(s): G43.709 - Chronic migraine without aura, not intractable, without status migrainosus Category: Medical Qualifiers: Status migrainosus presence: without status migrainosus Intractability: intractable Qualified Code(s): G43.719 - Chronic migraine without aura, intractable, without status migrainosus (2) Migraine with aura, intractable, without status migrainosus: Code(s): G43.119 - Migraine with aura, intractable, without status migrainosus Category: Medical (3) Chronic migraine without aura, intractable, without status migrainosus: Code(s): G43.719 - Chronic migraine without aura, intractable, without status migrainosus Category: Medical Plan Patient tolerated the procedure well. She will call with any side effects. Orders: Orders AMB Botulinum toxin Injection - Patient Supplied N/C Today G43.719 - Chronic migraine without aura, intractable, without status migrainosus Coding Level of Care Code Est Pt Level 1 (76395) Diagnoses Intractable chronic migraine without aura and without status migrainosus G43.719 Status migrainosus presence: without status migrainosus Intractability: intractable Migraine with aura, intractable, without status migrainosus G43.119 Chronic migraine without aura, intractable, without status migrainosus G43.719 CPT Codes Botox Injection - Botox 3: 44106 - Migraine ([id number])
[2025-05-11 12:27] VITALS: BP 108/64; PULSE 80; O2SAT 98; BMI 23.3
== END 2025-05-11 12:53 | disposition home or self-care (01) ==
LOC: HO.HSMS 12:26
PROVIDERS: PCP Pediatrics; Visit Provider Psychiatry & Neurology Neurology
DX: G43.719 Chronic migraine without aura, intractable, without status migrainosus (principal)
CPT/HCPCS: 64615; 99499

== ENCOUNTER → 2025-05-11 12:25 | Outpatient (BNVA) | payer BC, SELFPAY | PROVIDERS: PCP Pediatrics; Visit Provider Psychiatry & Neurology Neurology | DX: G43.719 Chronic migraine without aura, intractable, without status migrainosus (principal) | CPT/HCPCS: 64615; J0585 ==